=== PATIENT | female | born 1950 | race Caucasian/White ===

== ENCOUNTER → 2025-07-08 | Outpatient (CLI) | payer OTHER ==
--- NOTE | 2025-07-08 12:14 | HMCIMG ---
Exam: NONCONTRAST CT BRAIN REASON: Unspecified injury of head, initial encounter. COMPARISON: Prior CT of the head from 08/23/2014 is available. TECHNIQUE: Images are obtained from vertex to the skull base. The exam was performed without IV contrast. FINDINGS: There is normal appearing brain parenchyma. There are no focal mass lesions. There is is no evidence of intracranial hemorrhage or acute stroke. Ventricles and sulci appear normal. Posterior fossa and brainstem structures are unremarkable. Paranasal sinuses and remaining extracranial soft tissues appear normal as well.There is global atrophy with periventricular ischemic white matter changes. IMPRESSION: 1. No acute intracranial process 2. Global atrophy with periventricular ischemic white matter changes. CT was performed with one or more following dose reduction techniques: automated exposure control, adjustment of the mA and kv according to patient's size, or use of a iterative reconstruction technique.
== END | disposition home or self-care (01) ==
LOC: RAH 11:33
PROVIDERS: ATTEND Physician Assistant Medical
DX: S09.90XA Unspecified injury of head, initial encounter (principal); I67.82 Cerebral ischemia; G31.9 Degenerative disease of nervous system, unspecified; X58.XXXA Exposure to other specified factors, initial encounter; Y93.89 Activity, other specified; Y92.89 Other specified places as the place of occurrence of the external cause; Y99.8 Other external cause status
CPT/HCPCS: 70450